=== PATIENT | female | born 1935 | race Caucasian/White ===

== ENCOUNTER → 2016-06-29 | Outpatient (CLI) | payer OTHER, MEDICARE ==
[~2016-06-29] VITALS: Ht 160 cm; Wt 91.8 kg
[~2016-06-29] MED LIST: ALEVE220 M1 PO; CELEXA40 MG PO; COMPOUNDING CREAM; DEPAKOTE 250MG250 M1 PO; GLUCOSAMINE &1 EAC1 PO; HERBAL VITAMINS; HYDROCODON-ACE1 EACH PO; LAMISIL250 MG PO; LIDODERM 5%1 PATC1 TRANSDERM; LIDODERM 5%1 PATCH TOP; LORTAB; LORTAB 5-500 T1 EAC1 PO; MELOXICAM7.5 MG PO; MIRALAX255 GM; NAPROSYN250 MG PO; NAPROSYN375 MG PO; OXYBUTYNIN 5 MG5 M1 PO; OXYBUTYNIN 5 MG5 M2 PO; PREVACID; PREVACID15 MG PO; PROZAC 20 MG20 M1 PO; RESTORIL15 MG PO; TRAMADOL 50 MG50 MG PO; TRAZODONE 150150 M1 PO; VITAMIN D1000 UNI1 PO; XANAX 0.5 MG0.5 M1 PO; ZOLOFT 50 MG TA50 M1 PO; [UNRECOGNIZED DRUG - REMARK]
--- NOTE | ~2016-06-29 | HPC ---
[facility] [place] [address] PAIN MANAGEMENT CONSULTATION Name: JOSE MARCOS Room #: REG [facility].#: [id number] Admission: 06/29/16 Attend Phys: Bertha Karimi MD Discharge: Date of : 35 Report #: [id number] THIS REPORT FOR: //name// CC: Dada Bennett MD DATE OF SERVICE: 06/29/2016 FOLLOWUP COMPLAINT: The pain did pretty well after the last injection and now, it has come back. FOLLOWUP HISTORY: The patient is an 80-year-old female who has been seen in the pain clinic in the past because of lumbar radiculopathy. She has undergone a number of epidural steroid injections. All of these have improved her level of comfort. She states that she is considering going to [place]. She would like to undergo another epidural steroid injection to help with pain and discomfort. She rates her pain as an 8/10 at this juncture. She is experiencing pain in the low back area, which radiates down into her left buttocks and into her left leg and thigh. She notes that there is tenderness, sharp sensation and that she is walking with a slight limp because of this. She has not fallen since we saw her last. PHYSICAL EXAMINATION: Blood pressure is 128/67, pulse 75, respiratory rate 18, room air saturation 100%. The patient has pain and discomfort in the lower portion of her back with pain radiating down in the lower back, left buttocks, left thigh and into the leg. She describes it as 8/10. RECOMMENDATIONS: We will proceed with another epidural steroid injection. Risks and benefits of an epidural steroid injection were again explained. Possible increased muscle soreness, bleeding, headache, increased muscle and increased nerve pain were all discussed. The patient elects to proceed. PROCEDURE NOTE: The patient was placed in the prone position. Fluoroscopy was used to identify the L3-L4 interspace. This area had been sterilely prepped with Betadine and infiltrated with 0.25% bupivacaine. Total of 80 mg Depo-Medrol, 40 mg triamcinolone and 2 mL of 0.25% bupivacaine was injected. The patient tolerated the procedure well. Total of 19.2 seconds were used. The patient's pain decreased from 8 to 5 at the time of discharge. She will call us if she has any problems with her medications. We would like to thank you for letting us participate in her care. We hope she continues to improve. <ELECTRONICALLY SIGNED> By: Bertha Karimi MD 07/02/16 0819 1319 1729 Bertha Karimi MD /lazara
[2016-06-29 10:33] VITALS: BP 128/67
== END | disposition home or self-care (01) ==
LOC: PAIN 06-23 07:25
DX: M54.16 Radiculopathy, lumbar region (principal); G89.29 Other chronic pain

== ENCOUNTER → 2016-12-02 | Outpatient (CLI) | payer OTHER, MEDICARE | LOC: RAD 08:36 | DX: K44.9 Diaphragmatic hernia without obstruction or gangrene (principal); R13.10 Dysphagia, unspecified ==

== ENCOUNTER → 2017-03-17 | Outpatient (CLI) | payer OTHER, MEDICARE ==
[~2017-03-17] VITALS: Ht 160 cm; Wt 90.0 kg
--- NOTE | ~2017-03-17 | HPC ---
[facility] [place] [address] PAIN MANAGEMENT CONSULTATION Name: LESLIE MARCOS Room #: REG JOYCEDi Reid#: [id number] Admission: 03/17/17 Attend Phys: Nik Melendez MD Discharge: Date of : 35 Report #: [id number] THIS REPORT FOR: //name// CC: Sanjeev Melendez DATE OF SERVICE: 03/17/2017 Followup visit for lumbar spondylolisthesis and spondylosis with spinal stenosis and radiculopathy. This is an intermittent injection for Leslie who is here today complaining of pain that radiates down into both legs. She has responded nicely to epidural steroid injections. The last injection [address] Karimi. Pain is mostly in the back radiating down the posterior lateral aspect of both legs. She has a fairly significant stenosis at L3-L4 where she has severe bulging and ligamentum flavum thickening. Unfortunately, she has been able to respond nicely to injections and surgery has not been necessary. She is here today for an injection. MEDICATIONS: Lidocaine packs, oxybutynin, sertraline, naproxen, alprazolam. ALLERGIES: None. PAST MEDICAL HISTORY: Positive for the spinal stenosis, degenerative joint disease. She had lap band performed many years ago. She had a cholecystectomy, hysterectomy and knee replacement in 2013. 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 She travels back and forth to [place] to be with her dog. PHYSICAL EXAMINATION: VITAL SIGNS: Blood pressure 128/67, heart rate 75. She has got a BMI of 35.9. She has pain across the low back and a positive straight leg raising discomfort bilaterally. IMPRESSION: Low back pain with radiculopathy secondary to severe spinal stenosis at L3-L4. RECOMMENDATIONS: Repeat epidural steroid injection under fluoroscopic guidance. PROCEDURE: She was taken to fluoroscopic suite for treatment and placed prone, skin prepped with ChloraPrep. Skin anesthetized over L3-L4. A 20-gauge Tuohy epidural needle advanced in the epidural space in the first attempt using loss of resistance. No blood nor CSF aspirated. Omnipaque 1 mL was injected with excellent spread of dye observed in the epidural space extending caudad. It was [facility] [address] [place] [address] PAIN MANAGEMENT CONSULTATION Name: LESLIE MARCOS Room #: REG [facility].#: [id number] Admission: 03/17/17 Attend Phys: Nik Melendez MD Discharge: Date of : 35 Report #: [id number] then followed by 3 mL of 0.5% lidocaine mixed with 80 mg of triamcinolone. She tolerated the procedure well and was observed for 45 minutes and discharged. Followup visit ____ as needed. No medications ordered. By: 1539 0051 Nik Melendez MD /nt
[2017-03-17 15:02] VITALS: BP 123/74
== END | disposition home or self-care (01) ==
LOC: PAIN 07:15
DX: M43.16 Spondylolisthesis, lumbar region (principal); M47.26 Other spondylosis with radiculopathy, lumbar region; Z79.899 Other long term (current) drug therapy; M48.06 Spinal stenosis, lumbar region; M19.90 Unspecified osteoarthritis, unspecified site; Z90.49 Acquired absence of other specified parts of digestive tract; Z90.710 Acquired absence of both cervix and uterus; Z68.35 Body mass index [BMI] 35.0-35.9, adult

== ENCOUNTER → 2018-01-19 | Outpatient (CLI) | payer OTHER, MEDICARE ==
[~2018-01-19] VITALS: Ht 160 cm; Wt 90.7 kg
--- NOTE | ~2018-01-19 | CRIT ---
[facility] [place] [address] CRITICAL CARE NOTE Name: JOSE MARCOS Room #: REG [facility] Vikki.#: [id number] Admission: 01/19/18 Attend Phys: Nik Melendez MD Discharge: Date of : 35 Report #: [id number] THIS REPORT FOR: //name// CC: Sanjeev Melendez DATE OF SERVICE: 01/19/2018 Followup visit for chronic low back pain with lumbar spondylolisthesis, spondylosis and radiculopathy due to spinal stenosis. I last saw the patient on 03/17/2017; it has been nearly 10-1/2 months since she last received an epidural injection. She reports to us that she receives many months of excellent pain relief following her injection. Pain is in her low back and today it is a 6/10. It radiates into her legs as well bilaterally. I have reviewed her x-rays, which show that she has spinal stenosis and spondylolisthesis at L3-L4. She has always responded nicely to an injection at that level. She would like to avoid surgery. She remains active. 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 She seems a little unhappy that she does not have a current opportunity, but is looking. She has a dog that she cares for. She is still functioning and is able to take care of herself without assistance. MEDICATIONS: Reviewed and reconciled, unchanged from previous visits. ALLERGIES: None. PQRS reveals that she is not a fall risk, that her pain intensity is a 6, that she is obese with a BMI of 35.4. Weight loss discussed. She is on no opioids and no contract has been initiated. She denies use of tobacco or alcohol. PHYSICAL EXAMINATION: She is a colorful friendly outgoing and loquacious 82-year-old. She looks younger than her stated age. She is able to move independently from sitting to standing position, but has a small antalgic gait. She has limited range of motion in flexion, extension, lnix-rt-dsem tilt and rotation, all of which exacerbate pain across her low back. Straight leg raising is positive bilaterally, worse on the left. Sensation is intact. IMPRESSION: Chronic low back pain with radiculopathy secondary to spinal stenosis, lumbar spondylosis and spondylolisthesis L3-L4. PROCEDURE: Epidural steroid injection L3-L4 under fluoroscopic guidance. [address] [address] CRITICAL CARE NOTE Name: JOSE MARCOS Room #: REG [facility]#: [id number] Admission: 01/19/18 Attend Phys: Nik Melendez MD Discharge: Date of : 35 Report #: [id number] DESCRIPTION OF PROCEDURE: She was taken to fluoroscopic suite for the procedure, placed prone, skin prepped with ChloraPrep. Skin anesthetized over the L3-L4 interspace. A 20-gauge Tuohy epidural needle advanced on the first attempt in the epidural space with loss of resistance technique. There was no blood or CSF aspirated. 1 mL of Omnipaque was injected with excellent spread of dye observed in the epidural space, followed by 3 mL of 0.5% lidocaine mixed with 80 mg of triamcinolone. She tolerated the procedure well. She was observed for 30 minutes and discharged. Pain was zero at discharge. We plan to see her only as needed for injections. It has been 10 months since her last need for injection. By: 1641 2046 Nik Melendez MD /nt
[2018-01-19 12:52] VITALS: BP 136/87
== END | disposition home or self-care (01) ==
LOC: PAIN 06:17
DX: M48.061 Spinal stenosis, lumbar region without neurogenic claudication (principal); M47.26 Other spondylosis with radiculopathy, lumbar region; M43.16 Spondylolisthesis, lumbar region; G89.29 Other chronic pain; Z79.899 Other long term (current) drug therapy; Z98.890 Other specified postprocedural states

== ENCOUNTER → 2019-02-05 | Outpatient (CLI) | payer OTHER, MEDICARE | LOC: RAD 10:17 | DX: R13.10 Dysphagia, unspecified (principal) ==

== ENCOUNTER → 2019-08-13 | Outpatient (CLI) | payer OTHER, MEDICARE ==
[~2019-08-13] VITALS: Ht 160 cm; Wt 89.8 kg
[~2019-08-13] MED LIST changes: +ADVIL200 M1 PO; +MYRBETRIQ50 MG PO; +TRAZODONE HCL50 MG PO
[2019-08-13 13:53] VITALS: BP 143/64
--- NOTE | 2019-08-13 14:15 | NUR ---
Pain Clinic Assessment: 1. History of Osteoarthritis: HANDS History of Rheumatoid Arthritis: Not Applicable 2. Height: 5 ft. 3 in. 160.0 cm. Weight: 198.0 lb. oz. 89.812 kg. Patient's BMI: 35.1 3. Vital Signs: BP: 143/64 Pulse: 81 Resp: 16 Temp: 02 Sat: 100 ECG Mon: 4. Pain Intensity: 8 5. Fall Risk: Dizziness: N Needs help standing or walking: N Fallen in the last 3 months: N Fall risk comments: 6. Patient on Blood Thinner: None 7. History of Hypertension: N 8. Opioid Therapy greater than 6 weeks: N Opiate Contract Signed: 9. Risk Assessment Tool Provided: LOW RISK 10. Functional Assessment Tool: 11. Recreational Drug Use: Never Drug Type: Tobacco Use: Never Smoker Tobacco Type: Amount or Packs/day: How Many Years: Alcohol Use: No Frequency: Quant:
--- NOTE | 2019-08-23 14:30 | HPC ---
[facility] [address] [address] PAIN MANAGEMENT CONSULTATION Name: JOSE MARCOS Room #: REG [facility] Vikki.#: [id number] Admission: 08/13/19 Attend Phys: Nik Melendez MD Discharge: Date of : 35 Report #: [id number] THIS REPORT FOR: cc: Sanjeev Bennett MD, Neal A. MD Morgan,iNk Burt MD ~ THIS REPORT FOR: //name// CC: Sanjeev Melendez DATE OF SERVICE: 08/13/2019 Followup visit for lumbar radiculopathy. The patient is a pleasant 83-year-old who I have treated for several years for lumbar radiculopathy. She has responded very nicely to epidural injections for spinal stenosis. Her last injection was nearly 18 months ago. Over the course of the last several months, her pain has been getting worse. It is in her low back, radiates through her buttocks, down into her knees. Pain mostly follows an L5 distribution, but also some L4 as well. She describes it as an 8/10, aching and stabbing. It affects her activities. She is dressed and acts much younger than her stated age of 83. She is quite youthful appearing. 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 She would like to work as a nurse, but finds there is no one to hire her. She suspects age discrimination. She also tells me the story about getting scammed and lost thousands of dollars to a [employer] scheme. PQRS is positive for osteoarthritis of both hands. Her BMI is 35.1. Blood pressure 143/64, heart rate 81, respirations 16, O2 sat 100. Pain intensity is 8/10. She does not have a fall risk. She does not use a cane and walks very briskly. She is on no blood thinning medications at this time. She denies hypertension. She is not on opioids and is considered at low risk for addiction by the ORT score. Functional assessment score of 23/70 also suggesting that she manages well with her pain, although she complains bitterly. She denies recreational drug use, tobacco use or alcohol. PHYSICAL EXAMINATION: As noted above. Tenderness across the low back, pain with forward flexion, extension, rotational movements. Positive straight leg raising is noted bilaterally. Radiating pain into the L4-L5 distribution. IMPRESSION: Lumbar radiculopathy. PROCEDURE NOTE: Lumbar epidural steroid injection under fluoroscopic guidance, [address] [address] PAIN MANAGEMENT CONSULTATION Name: JOSE MARCOS Room #: REG [facility]#: [id number] Admission: 08/13/19 Attend Phys: Nik Melendez MD Discharge: Date of : 35 Report #: [id number] L3-L4. After informed consent, she was taken to fluoroscopic suite, placed prone, skin prepped with ChloraPrep. Skin anesthetized over L3-L4 and a 20-gauge Tuohy epidural needle advanced on first attempt in the epidural space with loss of resistance. There was no blood or CSF aspirated. Omnipaque 1 mL was injected with excellent spread of dye observed in the epidural space followed by 3 mL of 0.5% lidocaine mixed with 80 mg of triamcinolone. She tolerated the procedure very well. There were no complications. She was observed in recovery room for 30 minutes and discharged. Followup visit planned as needed. <ELECTRONICALLY SIGNED> By: Nik Melendez MD 08/23/19 1430 1450 2314 Nik Melendez MD /nt
== END | disposition home or self-care (01) ==
LOC: PAIN 06-18 06:51
DX: M54.16 Radiculopathy, lumbar region (principal); G89.29 Other chronic pain; Z98.890 Other specified postprocedural states; Z79.899 Other long term (current) drug therapy

== ENCOUNTER → 2019-12-19 | Outpatient (CLI) | payer OTHER, MEDICARE ==
[2019-12-19 09:07] LABS: ABSOLUTE NEUTROPHILS 2.8 thou/uL (1.4-8.2); BASOPHILS 0.6 % (0.0-2.0); EOSINOPHILS 1.6 % (0.0-3.0); HEMATOCRIT 42.2 % (37.0-47.0); LYMPHOCYTES 55.7 % (24.0-44.0); MCH 33.3 pg (26.0-34.0); MCHC 33.1 g/dL (28.0-37.0); MCV 100.4 fL (80.0-100.0); MONOCYTES 6.1 % (1.0-8.0); PLATELET COUNT 165 thou/uL (150-400); RDW 13.6 % (10.5-14.5); WBC 7.7 thou/uL (4.0-11.0)
[2019-12-19 09:27] LABS: ALBUMIN 3.7 g/dL (3.4-5.0); CALCIUM 9.1 mg/dL (8.5-10.1); CREATININE 1.3 mg/dL (0.6-1.0); POTASSIUM 3.5 mmol/L (3.5-5.1); TOTAL BILIRUBIN 0.4 mg/dL (0.2-1.0); TOTAL PROTEIN 6.3 g/dL (6.4-8.2)
== END ==
LOC: LAB 12-18 16:13
PROVIDERS: ATTEND Nurse Practitioner
DX: K76.89 Other specified diseases of liver (principal); N28.1 Cyst of kidney, acquired; Z90.49 Acquired absence of other specified parts of digestive tract; Z90.710 Acquired absence of both cervix and uterus; Z90.89 Acquired absence of other organs

== ENCOUNTER → 2021-04-10 | Outpatient (CLI) | payer OTHER, MEDICARE ==
[~2021-04-10] MED LIST changes: +ZOLOFT100 MG PO
== END ==
LOC: LAB 15:50
PROVIDERS: ATTEND Student in an Organized Health Care Education/Training Program
DX: Z01.812 Encounter for preprocedural laboratory examination (principal)

== ENCOUNTER → 2021-04-14 | Outpatient (CLI) | payer OTHER, MEDICARE ==
[~2021-04-14] VITALS: Ht 160 cm; Wt 86.2 kg
--- NOTE | 2021-04-15 13:08 | PATH ---
[facility] [place] [address] PATHOLOGY RPT PROCEDURE Name: LESLIE BERNARD Room #: REG [facility] M.Clifford.#: [id number] Admission: 04/14/21 Date of : 35 Discharge: Report #: [id number] Path Case #: [id number] [facility] Accession Number: [id number] . 01 Material submitted: . PART A: colon - RANDOM COLON BIOPSY. Modifiers: RANDOM PART B: colon - ASCENDING COLON POLYPS. Modifiers: ascending . 01 Clinical history: . CHANGE IN BOWEL HABITS RULE OUT MICROSCOPIC COLITIS COLON POLYP, DIVERTICULOSIS . 02 Diagnosis: A. Large intestinal mucosa, random colon, rule out microscopic colitis, endoscopic biopsy: - Nonspecific hyperplastic and reactive changes. - Negative for active colitis. - Negative for microscopic colitis. - Negative for dysplasia. . B. Polyps, ascending colon polyps, endoscopic biopsy: - Tubular adenoma, multiple fragments. - Negative for high-grade dysplasia. (IUV:pit; 04/15/2021) QTP 04/15/2021 1124 Local . 02 Comment: A. Examination shows scattered rare foci of apoptosis, mild focal increase in cellularity of the lamina propria as well as reactive hyperplastic changes. The findings may be suggestive of bowel preparation, resolved episode of colitis, or medication/drug induced effect. Please correlate clinically. (IUV:pit; 04/15/2021) . 02 Electronically signed: . Noelle Canela MD, Pathologist NPI- [id number] . 01 Gross description: . A. The specimen is received in formalin, labeled "Leslie Bernard, random colon BX". Received are 3 segments of pale wang tissue ranging in size from 0.2 to 0.3 cm in maximum dimensions. The specimen is submitted entirely in cassette A1. . B. The specimen is received in formalin, labeled "Marco Antonio, Leslie, ascending colon polyps". Received are 5 segments of pale wang tissue ranging in size [address] [address] PATHOLOGY RPT PROCEDURE Name: LESLIE BERNARD Room #: REG [facility]#: [id number] Admission: 04/14/21 Date of : 35 Discharge: Report #: [id number] Path Case #: [id number] from 0.1 to 0.7 cm in maximum dimensions. The specimen is submitted entirely in cassette B1.([facility]; 04/14/2021) [facility] 04/14/[address] [place] [address] . Pathologist provided ICD-10: D12.2 . 02 CPT . 207683, 457366 Specimen Comment: A courtesy copy of this report has been sent to [phone] Specimen Comment: Report sent to Performed at: [address], [place] [id number] MD Tha Harrell MD Phone: [phone] Performed at: [address] [id number] MD Noelle Canela MD Phone: [phone]
== END | disposition home or self-care (01) ==
LOC: GI 06:40
PROVIDERS: ATTEND Internal Medicine
DX: R19.4 Change in bowel habit (principal); R19.7 Diarrhea, unspecified; D12.2 Benign neoplasm of ascending colon; K57.30 Diverticulosis of large intestine without perforation or abscess without bleeding; K64.8 Other hemorrhoids; M19.90 Unspecified osteoarthritis, unspecified site; F32.9 Major depressive disorder, single episode, unspecified; F41.9 Anxiety disorder, unspecified; Z98.890 Other specified postprocedural states; Z79.899 Other long term (current) drug therapy; Z90.49 Acquired absence of other specified parts of digestive tract; Z90.710 Acquired absence of both cervix and uterus
CPT/HCPCS: 62110; 62900

== ENCOUNTER → 2021-05-26 | Outpatient (CLI) | payer OTHER, MEDICARE ==
[~2021-05-26] VITALS: Ht 162.6 cm; Wt 85.3 kg
--- NOTE | 2021-05-27 16:06 | PATH ---
[facility] [place] [address] PATHOLOGY RPT PROCEDURE Name: LESLIE MARCOS Room #: REG JOYCE Vikki.#: [id number] Admission: 05/26/21 Date of : 35 Discharge: Report #: [id number] Path Case #: [id number] [facility] Accession Number: [id number] . 01 Material submitted: . PART A: small bowel - SMALL BOWEL BIOPSY PART B: gastrointestinal site - GASTRIC BIOPSY FOR H. PYLORI . 01 Clinical history: . ESOPHAGOGASTRODUODENOSCOPY ANOREXIA, NAUSEA ESOPHAGITIS . 02 Diagnosis: A. Small bowel, biopsy: - Small bowel mucosa possibly duodenal mucosa with mild chronic non-specific inflammation. - Negative for peptic duodenitis, giardiasis or malignancy. . B. Gastric, endoscopic biopsy: - Gastric antral mucosa with mild chronic inactive gastritis. - H. pylori is negative on immunohistochemical stain. - Negative for dysplasia or malignancy. (LULY/db; 05/27/2021) LBQ 05/27/2021 1350 Local . 02 Electronically signed: . Jenny eHrnandez MD, Pathologist NPI- [id number] . 01 Gross description: . A. The specimen is received in formalin, labeled "Marco Antonio, Leslie, small bowel BX". Received are 4 segments of pale wang tissue ranging in size from 0.3 to 0.4 cm in maximum dimensions. The specimen is submitted entirely in cassette A1. . B. The specimen is received in formalin, labeled "Marco Antonio, Leslie, gastric BX rule out H. pylori". Received are 4 segments of pale wang tissue ranging in size from 0.3 to 0.4 cm in maximum dimensions. The specimen is submitted entirely in cassette B1.([facility]; 05/26/2021) [facility] 05/26/2021 1559 Local . 02 Pathologist provided ICD-10: K52.9, K29.50 . 02 CPT . 275137, 106621, [id number] [place] [address] PATHOLOGY RPT PROCEDURE Name: LESLIE MARCOS Room #: REG Di Reid#: [id number] Admission: 05/26/21 Date of : 35 Discharge: Report #: [id number] Path Case #: [id number] Specimen Comment: A courtesy copy of this report has been sent to [phone] Specimen Comment: [phone] Specimen Comment: Report sent to / DR YEAGER Performed at: [address], [place], [place] [id number] MD Tha Harrell MD Phone: [phone] Performed at: [address] [id number] MD Noelle Canela MD Phone: [phone]
== END | disposition home or self-care (01) ==
LOC: GI 10:30
PROVIDERS: ATTEND Internal Medicine
DX: R10.13 Epigastric pain (principal); K21.00 Gastro-esophageal reflux disease with esophagitis, without bleeding; K44.9 Diaphragmatic hernia without obstruction or gangrene; K52.9 Noninfective gastroenteritis and colitis, unspecified; K29.50 Unspecified chronic gastritis without bleeding; F32.9 Major depressive disorder, single episode, unspecified; F41.9 Anxiety disorder, unspecified; Z96.653 Presence of artificial knee joint, bilateral; Z90.710 Acquired absence of both cervix and uterus; Z90.49 Acquired absence of other specified parts of digestive tract; Z98.890 Other specified postprocedural states; Z79.899 Other long term (current) drug therapy; Z20.822 Contact with and (suspected) exposure to COVID-19
CPT/HCPCS: 62110; 62900